=== PATIENT | female | born 1985 | race Caucasian/White ===

== ENCOUNTER 2018-07-29 19:50 | Inpatient (IN) | payer BC, OTHER ==
[2018-07-29] MEDS ORDERED: PROMETHAZINE HCL 25 MG/1 ML VIAL IVPB ONE (20:30)
[2018-07-29] MEDS ORDERED: DEXTROSE 5%-LACTATED RINGERS 1,000 ML IV SCH (20:30)
[2018-07-29] MEDS ORDERED: BUTORPHANOL TARTRATE 1 MG/ML VIAL IVPB ONE (20:30)
--- NOTE | 2018-07-29 20:30 | HP ---
Past Medical History - Primary Care Physician PCP:: Robles Saucedo - Admission Chief Complaint: 32yo P0 with at EGA 40w1d admitted in spontaneous latent labor. History of Present Illness: Normal Post term Pt was seen on L&D today in the morning in early labor and discharged to home. She was later seen in the office and also sent home. The pt returned to L&D tonight with c/o persistent painful contractions every 4-5 min. 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: Alzheimer's, CVA, Dementia, Migraine, Multiple Sclerosis, Peripheral Neuropathy, Parkinson's, Seizure, Syncope, TIA, Vertigo, Other Cardiovascular: No: AFIB, Aneurysm, Aortic Insufficiency, Aortic Stenosis, CAD, CHF, Deep Vein Thrombosis, HTN, Hyperlipdemia, CO, Mitral Insufficiency, Mitral Stenosis, Murmur, Pulmonary Hypertension, Other Pulmonary: No: Asthma, Bronchitis, Cancer, COPD, O2 Dependent, Pneumonia, Previously Intubated, Pulmonary Embolus, Pulmonary Fibrosis, Sleep Apnea, Other Gastrointestinal: No: Ascites, Cancer, Constipation, Crohn's Disease, Diverticulitis, Diverticulosis, Esophageal Varices, Gastritis, GERD, GI Bleed, Hemorrhoids, Hiatal Hernia, Inflamatory Bowel Disease, Irritable Bowel Disease, Pancreatitis, Peptic Ulcer Disease, Ulcerative Colitis, Other Hepatobiliary: No: Cirrhosis, Cholelithiasis, Cholecystitis, Choledocholithiasis , Hepatitis A, Hepatitis B, Hepatitis C, Other Renal/: No: Renal Failure, Renal Inusuff, BPH, Cancer, Hematuria, Hemodialysis , Neurogenic Bladder, Renal Calculi, UTI, Other Reproductive: No: Ectopic , Endometriosis, Fibroids, PID, Polycystic Ovary Syndrome, Postmenopausal, Other ...: 2 ...Para: 0 ...Term: 0 ...: 0 ...Spon : 0 ...Induced : 1 ... Weeks Gestation by Dates: 40.1 ...EDC by [facility]: 07/28/18 Heme/Onc: No: Anemia, B12 Deficiency, Bleeding Disorder, Cancer, Current Chemotherapy, Current Radiation Therapy, Hemochromatosis, Hypercoaguable State, Myeloproliferative Synd, Sickle Cell Disease, Sickle Cell Trait, Thrombocytopenia, Other Infectious Disease: No: AIDS, C-Diff, Herpes Zoster, HIV, MRSA, STD's, Tuberculosis, VREF, Other Psych: No: Addictions, Anxiety, Bipolar, Depression, Panic, Psychosis, Schizophrenia, Other Musculoskeletal: No: Bursitis, Chronic low back pain, Hemiparesis, Hemiplegia, Osteoarthritis, Paraplegia, Other Rheumatology: No: Fibromyalgia, Gout, Lupus, Rheumatoid Arthritis, Sarcoidosis, Vasculitis, Other Endocrine: No: Vigo's Disease, Ronald's Disease, Diabetes Insipidus, Diabetes Mellitus, Hyperparathyroidism, Hyperthyroidism, Hypothyroidism, Osteopenia, SIADH, Other Dermatology: No: Basal Cell, Cellulitis, Eczema, Melanoma, Psoriasis, Squamous Cell, Other - Past Surgical History Past Surgical History: Yes: None Hx Myomectomy: No Hx Transabdominal Cerclage: No Additional Surgical History: D&C - Smoking History Smoking history: Never smoked Have you smoked in the past 12 months: No - Alcohol/Substance Use History of Substance Use: reports: None - Social History Usual Living Arrangement: Yes: With Spouse ADL: Independent Occupation: [employer] teacher History of Recent Travel: No Home Medications - Allergies Allergies/Adverse Reactions: Allergies Allergy/AdvReac Type Severity Reaction Status Date / Time No Known Allergies Allergy Verified 07/29/18 09:42 - Home Medications Home Medications: Ambulatory Orders Pnv No.95/Ferrous Fum/Folic AC [ Formula] 1 each PO DAILY 07/29/18 Family Disease History - Family Disease History Family History: Denies Review of Systems - Review of Systems Constitutional: reports: Other (labor) Eyes: reports: No Symptoms HENT: reports: No Symptoms Neck: reports: No Symptoms Cardiovascular: reports: No Symptoms Respiratory: reports: No Symptoms Gastrointestinal: reports: No Symptoms Genitourinary: reports: No Symptoms Breasts: reports: No Symptoms Reported Musculoskeletal: reports: No Symptoms Integumentary: reports: No Symptoms Neurological: reports: No Symptoms Endocrine: reports: No Symptoms Hematology/Lymphatic: reports: No Symptoms Psychiatric: reports: No Symptoms Pain Intensity: 7 Physical Exam - Maternity Constitutional: Yes: Well Nourished, No Distress, Calm Eyes: Yes: WNL, Conjunctiva Clear HENT: Yes: WNL, Atraumatic, Normocephalic Neck: Yes: WNL, Supple, Trachea Midline Cardiovascular: Yes: WNL, Regular Rate and Rhythm Lungs: Clear to auscultation, Normal air movement - Abdominal Exam/OB Fundal Height: 40 Number of Fetuses: Single Presentation: Vertex Contractions: Yes Regularity: Irregular Intensity: Moderate Monitor Mode: External Heart Rate (range): 140 Heart Rate Location: Midline Category: I Accelerations: Non-Uniform Decelerations: None - Vaginal Exam/OB Vaginal Bleediing: No Speculum Exam: No Dilatation (cm): 2 Effacement (%): 80 Amniotic Membrane Status: Intact Presentation: Vertex/Position Station: -3 (Adequate gynecoid pelvimetry EFW ~ 7lb9oz by US and Chris maneuvers) - Physical Exam Musculoskeletal: Yes: WNL Extremities: Yes: WNL Edema: No Integumentary: Yes: WNL Deep Tendon Reflex Grade: Normal +2 ...Motor Strength: WNL Psychiatric: Yes: WNL, Alert, Oriented Hemorrhage Risk Assessment - Risk Factors Medium Risk Factors: Yes: None High Risk Factors: Yes: None Risk Score: 1 Risk Level: Medium Risk Imaging - Results Ultrasound: Report Reviewed Assessment/Plan 32yo P0 with at EGA 40w1d admitted in spontaneous latent labor. The pt is in early latent labor. The fetus with Category I tracing and does not require intervention. Plan to monitor labor. The pain mgt options were reviewed.
[2018-07-29] MEDS ORDERED: AMPICILLIN - 2 GM in SODIUM CHLORIDE 100 ML IVPB ONE (20:37)
[2018-07-29] MEDS ORDERED: AMPICILLIN - 1 GM in SODIUM CHLORIDE 100 ML IVPB SCH (20:45)
[2018-07-29 21:02] LABS: BASO % 0.5 % (0-2.0); EOS % 0.9 % (0-4.5); HEMATOCRIT 35.8 % (32.4-45.2); HEMOGLOBIN 12.3 GM/dL (10.7-15.3); LYMPH % 9.8 % (8-40); MCH 30.6 pg (25.7-33.7); MCHC 34.3 g/dl (32.0-36.0); MEAN PLT VOLUME 11.3 fl (7.5-11.1); MONO % 6.3 % (3.8-10.2); NEUT % 82.5 % (42.8-82.8); PLATELET COUNT 174 K/MM3 (134-434); RBC 4.03 M/mm3 (3.60-5.2); RDW 14.5 % (11.6-15.6); WHITE BLOOD COUNT 14.4 K/mm3 (4.0-10.0)
[2018-07-29] MEDS ORDERED: PROMETHAZINE HCL 25 MG/1 ML VIAL ONE (21:31)
[2018-07-29] MEDS ORDERED: BUTORPHANOL TARTRATE 1 MG/ML VIAL ONE ×2 (21:31)
[2018-07-29 21:34] LABS: INR 0.89 (0.83-1.09); PROTHROMBIN TIME (PATIENT) 10.5 SEC (9.7-13.0)
[2018-07-29 21:37] LABS: ACTIVATED PTT 28.3 SECONDS (25.2-36.5)
[2018-07-29] MEDS ORDERED: AMPICILLIN SODIUM 2 GM VIAL ONE (22:10)
[2018-07-29] MEDS ORDERED: SODIUM CHLORIDE 100 ML IVPB ONE (22:11)
[2018-07-29 22:17] LABS: ANION GAP 11 MMOL/L (8-16); BLOOD UREA NITROGEN 4 mg/dL (7-18); CALCIUM 8.7 mg/dL (8.5-10.1); CHLORIDE 108 mmol/L (98-107); CO2 21 mmol/L (21-32); CREATININE 0.8 mg/dL (0.55-1.3); GLUCOSE,RANDOM 99 mg/dL (74-106); SODIUM 139 mmol/L (136-145)
[2018-07-29 23:15] VITALS: BMI 28.1
[2018-07-30] MEDS ORDERED: AMPICILLIN SODIUM 1 GM VIAL ONE ×3 (02:04→14:33)
[2018-07-30] MEDS: AMPICILLIN - 1 GM in SODIUM CHLORIDE 100 ML IVPB SCH ×6 (02:13→22:48)
[2018-07-30] MEDS ORDERED: FENTANYL/BUPIVACAINE/NS/PF - PCEA - 50 ML DISP.SYRIN EP ONE ×3 (05:34→14:30)
[2018-07-30] MEDS ORDERED: LIDO 2%/EPI 1:200000 PRESRVFRE (20 ML SDVIAL) ONE (05:39)
[2018-07-30] MEDS ORDERED: BUPIVACAINE HCL/PF 0.25% (2.5MG/ML) 10 ML VIAL ONE ×2 (05:39→15:25)
[2018-07-30] MEDS ORDERED: NALOXONE HCL 0.4 MG/ML VIAL IVPUSH PRN (06:12)
[2018-07-30] MEDS ORDERED: FENTANYL/BUPIVACAINE/NS/PF - PCEA - 50 ML DISP.SYRIN EP SCH ×2 (06:15→07:10)
--- NOTE | 2018-07-30 08:26 | PN ---
Ante-Partal Exam - Subjective Subjective: No complaints. Pt has epidural in place. Spontaneous labor. Vital Signs: Vital Signs Temperature 98.5 F 07/30/18 05:00 Pulse Rate 66 07/30/18 07:00 Respiratory Rate 20 07/30/18 07:00 Blood Pressure 107/73 07/30/18 07:00 O2 Sat by Pulse Oximetry (%) 98 07/30/18 07:00 Bleeding: No Headache: No Visual changes: No Right upper quadrant pain: No Pain (scale 1-10): 0 - Contractions Contractions: Yes Regularity: Regular Intensity: Unaware Monitor Mode: External - Exam during Labor Heart Rate: 140 Variability: Moderate Heart Rate Location: Midline Category: I Monitor Accelerations: Present Monitor Decelerations: None Exam: Vaginal Dilatation (cm): 3 Effacement (%): 90 Amniotic Membrane Status: Intact Presentation: Vertex Station: -2 (Adequate gynecoid pelvimetry) - Intrapartum Hemorrhage Risk Medium Risk Factors: None High Risk Factors: None Risk Score: 0 Risk Level: Low Risk - Assessment/Plan Assessment/Plan: Pt is progressing in latent labor. Fetus with Category I tracing and does not require intervention. Plan to monitor labor.
[2018-07-30] MEDS ORDERED: ELECTROLYTE-148 SOLN 1,000 ML IV SCH (13:00)
--- NOTE | 2018-07-30 13:07 | PN ---
Ante-Partal Exam - Subjective Subjective: Patient comfortable s/p epidural Vital Signs: Vital Signs Temperature 98.3 F 07/30/18 10:00 Pulse Rate 69 07/30/18 11:30 Respiratory Rate 18 07/30/18 11:30 Blood Pressure 116/82 07/30/18 11:30 O2 Sat by Pulse Oximetry (%) 100 07/30/18 11:30 Bleeding: No Headache: No Visual changes: No Right upper quadrant pain: No - Contractions Contractions: Yes Regularity: Regular Intensity: Unaware Monitor Mode: External - Exam during Labor Heart Rate: 130 Variability: Moderate Category: I Monitor Accelerations: Present Monitor Decelerations: Variable Exam: Vaginal Dilatation (cm): 5 Effacement (%): 100 Amniotic Membrane Status: Ruptured Presentation: Vertex Station: -1 - Intrapartum Hemorrhage Risk Medium Risk Factors: None High Risk Factors: None Risk Score: 0 Risk Level: Low Risk - Assessment/Plan Assessment/Plan: 32 yo active labor 1. Good cervical changed 2. GBS positive 3. Category I FHT 4. Pain well controlled with epidural 5. Will proceed with expectant management
--- NOTE | 2018-07-30 16:16 | PN ---
Ante-Partal Exam - Subjective Subjective: Pt w/o complaints Vital Signs: Vital Signs Temperature 98.3 F 07/30/18 14:00 Pulse Rate 76 07/30/18 16:00 Respiratory Rate 18 07/30/18 16:00 Blood Pressure 119/83 07/30/18 16:00 O2 Sat by Pulse Oximetry (%) 100 07/30/18 16:00 Bleeding: No Headache: No Visual changes: No Right upper quadrant pain: No Pain (scale 1-10): 0 - Contractions Contractions: Yes Regularity: Regular Intensity: Unaware Monitor Mode: External - Exam during Labor Heart Rate: 135 Variability: Moderate Heart Rate Location: Midline Category: I Monitor Accelerations: Present Monitor Decelerations: Variable (occasional) Exam: Vaginal Dilatation (cm): 9 Effacement (%): 100 Amniotic Membrane Status: Leaking Amniotic Fluid: Clear Meconium Staining: Light Presentation: Vertex Station: +1 - Intrapartum Hemorrhage Risk Medium Risk Factors: None High Risk Factors: None Risk Score: 0 Risk Level: Low Risk - Assessment/Plan Assessment/Plan: 32yo P0 with at EGA 40 wks in spontaneous labor. The pt is progressing in active labor. Fetus with category I tracing and does not require intervention. Plan to monitor labor and anticipate .
[2018-07-30] MEDS ORDERED: LIDOCAINE HCL 1% PRESERVATIVE FREE - 30ML VIAL ONE (16:47)
[2018-07-30] MEDS ORDERED: OXYTOCIN 20 UNITS in 0.9% NS 20 UNIT/1,000 ML INFUS.BAG IV ONE (16:47)
--- NOTE | 2018-07-30 17:01 | PN ---
Ante-Partal Exam - Subjective Subjective: Spontaneous decel noted. Pt is fully dilated on exam Vital Signs: Vital Signs Temperature 98.3 F 07/30/18 14:00 Pulse Rate 76 07/30/18 16:00 Respiratory Rate 18 07/30/18 16:00 Blood Pressure 119/83 07/30/18 16:00 O2 Sat by Pulse Oximetry (%) 100 07/30/18 16:00 Bleeding: No Headache: No Visual changes: No Right upper quadrant pain: No Pain (scale 1-10): 0 - Contractions Contractions: Yes Regularity: Regular Intensity: Unaware Monitor Mode: External - Exam during Labor Variability: Absent (140) Heart Rate Location: Midline Category: I Monitor Accelerations: Present Monitor Decelerations: Prolonged (x 1) Exam: Vaginal Dilatation (cm): 10 Effacement (%): 100 Amniotic Membrane Status: Leaking Presentation: Vertex Station: +1 - Intrapartum Hemorrhage Risk Medium Risk Factors: None High Risk Factors: None Risk Score: 0 Risk Level: Low Risk - Assessment/Plan Assessment/Plan: 32yo P0 progressed to second stage and will stat pushing when feels contractions. Prolonged decel resolved.
--- NOTE | 2018-07-30 19:04 | PN ---
Delivery - Delivery Vaginal Delivery: No Problems Type of Anesthesia: Epidural Episiotomy/Laceration: Vaginal Extension/lac, 2nd degree EBL (cc): 300 Delivery, Single - Stages of Labor Date 1st Stage Initiatied: 07/29/18 Time 1st Stage Initiated: 21:00 Date 2nd Stage Initiated: 07/30/18 Time 2nd Stage Initiated: 17:00 Date of Delivery: 07/30/18 Time of Delivery: 18:30 Date Placenta Delivered: 07/30/18 Time Placenta Delivered: 18:45 Placenta: Yes: Spontaneous - Condition of Infant Infant Gender: Female Position: OA Total Hours ROM (Hrs/Mins): 5 hours 45 minutes - 1 Minute Total Score: 8 5 Minutes Total Score: 9 - [place] Feeding Plan Initial Plan: Exclusive throughout hospitalization Remarks - Remarks Remarks: Patient progressed to fully dilated and at 1830 via delivered a viable female in direct OA position, APGARs 8,9. Weight and length unknown at this time. Head delivered spontaneously, nuchal cord noted and delivered through. followed by shoulders and body without difficulty. Body cord noted. with spontaneous cry and placed on mother's abdomen. Nose and mouth was bulb suctioned. Cord was clamped and cut. Perineum and vagina examined, a second degree left vaginal laceration was noted and repaired in the usual fashion. Rectal exam revealed no sutures in rectum. Placenta was delivered spontaneously and intact. 20 units of pitocin in 1 L IVF was given. All counts correct x 2. Mother and infant stable in LDR. EBL 300cc.
[2018-07-30] MEDS ORDERED: BISACODYL 10 MG SUPP.RECT RC PRN (19:07)
[2018-07-30] MEDS ORDERED: BENZOCAINE 20% 57 GM BOTTLE TP PRN (19:07)
[2018-07-30] MEDS ORDERED: WITCH HAZEL 50% (TUCKS) 40 PAD/JAR PAD TP PRN (19:07)
[2018-07-30] MEDS ORDERED: METHYLERGONOVINE MALEATE 0.2 MG/1 ML AMP IM PRN (19:07)
[2018-07-30] MEDS ORDERED: BENZOCAINE 28 GM HEMORRHOIDAL OINTMENT TP PRN (19:07)
[2018-07-30 19:08] LABS: ARTERIAL BLOOD GAS BASE EXCESS -6.1 meq/l (-2-2); ARTERIAL BLOOD GAS PCO2 47.5 mmHg (35-45); ARTERIAL BLOOD GAS pH 7.26 (7.35-7.45)
[2018-07-30 19:15] LABS: ARTERIAL BLOOD GAS PO2 22.9 mmHg (80-100)
[2018-07-30] MEDS ORDERED: OXYTOCIN 20 UNITS in 0.9% NS 20 UNIT/1,000 ML INFUS.BAG IV SCH (19:15)
[2018-07-30 19:17] LABS: VENOUS PC02 35.3 mmHg (38-52); VENOUS PH 7.33 (7.32-7.42); VENOUS PO2 33.7 mmHg (28-48)
[2018-07-31] MEDS: ACETAMINOPHEN 325 MG TABLET (FP) PO PRN ×4 (01:55→22:14)
[2018-07-31] MEDS: IBUPROFEN 600 MG TABLET (FP) PO PRN ×4 (01:57→22:15)
[2018-07-31 08:18] LABS: BASO % 0.4 % (0-2.0); EOS % 1.3 % (0-4.5); HEMATOCRIT 32.5 % (32.4-45.2); LYMPH % 10.8 % (8-40); MCH 30.3 pg (25.7-33.7); MCHC 33.7 g/dl (32.0-36.0); MEAN CELL VOLUME 89.9 fl (80-96); MEAN PLT VOLUME 11.1 fl (7.5-11.1); MONO % 7.4 % (3.8-10.2); NEUT % 80.1 % (42.8-82.8); PLATELET COUNT 158 K/MM3 (134-434); RBC 3.61 M/mm3 (3.60-5.2); RDW 14.7 % (11.6-15.6); WHITE BLOOD COUNT 17.1 K/mm3 (4.0-10.0)
--- NOTE | 2018-07-31 08:39 | PN ---
Post Progress Note - Subjective Subjective: Patient without acute complaints. Reports tolerating oral intake without nausea or vomiting. Ambulating without dizziness. Denies fevers or chills. Pain well controlled with oral pain medication. without difficulty. Passing flatus. Post Day: 1 Type of Delivery: Vital Signs: Vital Signs Temperature 98 F 07/31/18 06:00 Pulse Rate 74 07/31/18 06:00 Respiratory Rate 18 07/31/18 06:00 Blood Pressure 118/70 07/31/18 06:00 O2 Sat by Pulse Oximetry (%) 99 07/30/18 22:00 Breast Exam: Yes: Soft Uterus: Yes: Fundus Firm, Fundus below umbilicus Abdomen/GI: Yes: Abdomen soft, Passing flatus, Tolerating PO. No: Abdominal Distention, Tender Lochia: Yes: Serosa Lochia, amount: Small Extremities: Yes: Calves non-tender, Edema (trace) Perineum: Yes: Intact Activity: Ambulating - Labs Labs: CBC WBC 14.4 K/mm3 (4.0-10.0) H 07/29/18 20:30 RBC 4.03 M/mm3 (3.60-5.2) 07/29/18 20:30 Hgb 12.3 GM/dL (10.7-15.3) 07/29/18 20:30 Hct 35.8 % (32.4-45.2) 07/29/18 20:30 MCV 89.0 fl (80-96) 07/29/18 20:30 MCH 30.6 pg (25.7-33.7) 07/29/18 20:30 MCHC 34.3 g/dl (32.0-36.0) 07/29/18 20:30 RDW 14.5 % (11.6-15.6) 07/29/18 20:30 Plt Count 174 K/MM3 (134-434) 07/29/18 20:30 MPV 11.3 fl (7.5-11.1) H 07/29/18 20:30 Absolute Neuts (auto) 11.9 K/mm3 (1.5-8.0) H 07/29/18 20:30 Neutrophils % 82.5 % (42.8-82.8) 07/29/18 20:30 Lymphocytes % 9.8 % (8-40) 07/29/18 20:30 Monocytes % 6.3 % (3.8-10.2) 07/29/18 20:30 Eosinophils % 0.9 % (0-4.5) 07/29/18 20:30 Basophils % 0.5 % (0-2.0) 07/29/18 20:30 Nucleated RBC % 0 % (0-0) 07/29/18 20:30 Assessment/Plan 32 yo PPD #1 s/p , afebrile, vital signs stable, doing well 1. Continue routine care. 2. AM CBC without anemia 3. Rh positive status, no rhogam indicated. 4. Encourage ambulation 5. Continue oral pain medication 6. Anticipate discharge home day #2
[2018-07-31] MEDS: PRENATAL VITAMINS W/ FOLIC ACID TABLET (FP) PO SCH (09:21)
[2018-07-31] MEDS ORDERED: FLU VACCINE QUAD 60 MCG/0.5 ML (MDV 18-19) IM ONE (10:00)
--- NOTE | 2018-07-31 12:04 | DS ---
Physical Exam-FREIGHT MANAGER Vital Signs: Vital Signs Temperature 98 F 07/31/18 09:52 Pulse Rate 69 07/31/18 09:52 Respiratory Rate 18 07/31/18 09:52 Blood Pressure 105/70 07/31/18 09:52 O2 Sat by Pulse Oximetry (%) 99 07/30/18 22:00 Labs: CBC, BMP 07/31/18 07:30 07/29/18 20:30 Delivery - Delivery Vaginal Delivery: No Problems Type of Anesthesia: Epidural Episiotomy/Laceration: Vaginal Extension/lac, 2nd degree EBL (cc): 300 Delivery, Single - Stages of Labor Date 1st Stage Initiatied: 07/29/18 Time 1st Stage Initiated: 21:00 Date 2nd Stage Initiated: 07/30/18 Time 2nd Stage Initiated: 17:00 Date of Delivery: 07/30/18 Time of Delivery: 18:30 Time Placenta Delivered: 18:45 Placenta: Yes: Spontaneous - 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 She progressed to deliver via a viable female infant. PPD # 1 patient ambulated, voiding, passing gas, tolerating oral intake and with adequate pain control. She fulfilled all criteria for discharge PPD #2 Condition: Good - Instructions Diet, Activity, Other Instructions: Physical activity Resume your normal everyday activity as tolerated no heavy lifting or exercise until seen by your surgeon. You may walk unlimited rai of and climb stairs. You may resume driving the car when you feel safe and comfortable behind the wheel. No sexual activity as instructed. Diet There are no dietary restrictions. Eat healthy, high-fiber foods. Drink 6 to 8 glasses of liquid each day. This will assist in keeping your bowels are regular. Pain management You may take Tylenol or acetaminophen or Ibuprofen (for example, Motrin, Advil etc.) from my pain prescription medication is ordered should be taken as prescribed for moderate to severe pain. Call MD for any of the following: Severe pain not relieved by medication Fever of 101 or higher Excessive bleeding or drainage on dressing Inability to urinate Referrals: Isabella Villalba MD [Staff Physician] - Disposition: HOME - Home Medications Comprehensive Discharge Medication List: Ambulatory Orders Pnv No.95/Ferrous Fum/Folic AC [ Formula] 1 each PO DAILY 07/29/18
[2018-07-31] MEDS ORDERED: SENNOSIDES/DOCUSATE COMBO (SENNA PLUS) TABLET (UD) PO PRN (22:00)
--- NOTE | 2018-08-01 07:11 | PN ---
Progress Note (short form) - Note Progress Note: ppd 2 doing well, no c/o , no excess vaginal bleeding CBC, BMP 07/31/18 07:30 07/29/18 20:30 Last Vital Signs Temp Pulse Resp BP Pulse Ox 98.6 F 67 18 116/76 99 07/31/18 22:00 07/31/18 22:00 07/31/18 22:00 07/31/18 22:00 07/30/18 22:00 uterus firm, non tender, no cva lochia mild no calf tenderness plan d/c home, follow up office 4 weeks
[2018-08-01] MEDS: ACETAMINOPHEN 325 MG TABLET (FP) PO PRN (07:34)
[2018-08-01] MEDS: IBUPROFEN 600 MG TABLET (FP) PO PRN (07:34)
[2018-08-01 09:23] VITALS: BP 125/77; PULSE 69; TEMP 98
[2018-08-01] MEDS: PRENATAL VITAMINS W/ FOLIC ACID TABLET (FP) PO SCH (09:25)
== END 2018-08-01 13:37 | disposition home or self-care (01) | DRG 807 ==
LOC: JDEL 19:50 → JLDR 19:51 → JDEL 20:10 → JLDR 07-30 10:01 → J3W 07-30 20:48
PROVIDERS: ADMIT Obstetrics & Gynecology; ATTEND Obstetrics & Gynecology
PROC: 0KQM0ZZ Repair Perineum Muscle, Open Approach (ICD-10-PCS; principal; 2018-07-30)
PROC: 10E0XZZ Delivery of Products of Conception, External Approach (ICD-10-PCS; 2018-07-30)
DX: O48.0 Post-term pregnancy (principal); Z37.0 Single live birth; O70.1 Second degree perineal laceration during delivery; Z3A.40 40 weeks gestation of pregnancy
CPT/HCPCS: 36415; 36600; 59409; 80048; 82803; 85025; 85610; 85730; 86593; 86850; 86900; 86901; 87389; 90688; G0008

== ENCOUNTER 2020-10-27 23:00 | Inpatient (IN) | payer BC, OTHER ==
[2020-10-28] MEDS ORDERED: DEXTROSE 5%-LACTATED RINGERS 1,000 ML IV SCH (01:20)
[2020-10-28 02:01] LABS: BASO % 0.6 % (0-2.0); EOS % 1.4 % (0-4.5); HEMATOCRIT 30.4 % (32.4-45.2); HEMOGLOBIN 10.1 GM/dL (10.7-15.3); LYMPH % 19.9 % (8-40); MCH 27.7 pg (25.7-33.7); MCHC 33.1 g/dl (32.0-36.0); MEAN CELL VOLUME 83.7 fl (80-96); MEAN PLT VOLUME 10.4 fl (7.5-11.1); MONO % 6.9 % (3.8-10.2); NEUT % 71.2 % (42.8-82.8); PLATELET COUNT 196 K/MM3 (134-434); RBC 3.63 M/mm3 (3.60-5.2); RDW 14.1 % (11.6-15.6); WHITE BLOOD COUNT 10.8 K/mm3 (4.0-10.0)
[2020-10-28 02:11] LABS: INR 0.88 (0.83-1.09); PROTHROMBIN TIME (PATIENT) 10.9 SEC (9.7-13.0)
[2020-10-28 02:13] LABS: ACTIVATED PTT 26.6 SECONDS (25.2-36.5)
[2020-10-28 02:18] VITALS: BMI 28.1
[2020-10-28] MEDS ORDERED: BUTORPHANOL TARTRATE 2 MG/ML VIAL IVPB ONE (02:40)
[2020-10-28] MEDS ORDERED: AMPICILLIN SODIUM 2 GM VIAL ONE (02:40)
[2020-10-28] MEDS ORDERED: PROMETHAZINE HCL 25 MG/1 ML VIAL IVPB ONE (02:40)
[2020-10-28] MEDS ORDERED: AMPICILLIN SODIUM 1 GM VIAL ONE ×2 (02:41→10:53)
[2020-10-28 02:44] LABS: BLOOD UREA NITROGEN 6.5 mg/dL (7-18); CALCIUM 8.7 mg/dL (8.5-10.1); CREATININE 0.6 mg/dL (0.55-1.3)
[2020-10-28] MEDS ORDERED: BUTORPHANOL TARTRATE 2 MG/ML VIAL ONE (02:56)
[2020-10-28] MEDS ORDERED: PROMETHAZINE HCL 25 MG/1 ML VIAL ONE (02:56)
[2020-10-28] MEDS ORDERED: AMPICILLIN SODIUM 2 GM VIAL IVPB ONE (03:00)
[2020-10-28 03:21] LABS: HIV INTERPRETATION NEGATIVE (NEGATIVE)
[2020-10-28] MEDS: AMPICILLIN SODIUM 1 GM VIAL IVPB SCH ×3 (06:54→19:14)
[2020-10-28] MEDS ORDERED: FENTANYL/BUPIVACAINE/NS/PF - PCEA - 50 ML DISP.SYRIN EP ONE ×2 (07:47→12:00)
[2020-10-28] MEDS ORDERED: PCA PUMP NR ONE (07:47)
[2020-10-28] MEDS ORDERED: NALOXONE HCL 0.4 MG/ML VIAL IVPUSH PRN (07:48)
[2020-10-28] MEDS ORDERED: BUPIVACAINE HCL/PF 0.25% (2.5MG/ML) 10 ML VIAL ONE ×3 (07:56→08:03)
[2020-10-28] MEDS ORDERED: FENTANYL/BUPIVACAINE/NS/PF - PCEA - 50 ML DISP.SYRIN EP SCH (08:00)
[2020-10-28] MEDS ORDERED: OXYTOCIN 30 UNITS in 0.9% NS 30 UNIT/500 ML INFUS.BAG IVPB SCH (08:15)
[2020-10-28] MEDS ORDERED: ELECTROLYTE-148 SOLN 1,000 ML IV SCH (08:15)
[2020-10-28] MEDS ORDERED: OXYTOCIN 30 UNITS in 0.9% NS 30 UNIT/500 ML INFUS.BAG IVPB ONE (08:27)
[2020-10-28] MEDS ORDERED: OXYTOCIN 20 UNITS in 0.9% NS 20 UNIT/1,000 ML INFUS.BAG IV ONE ×2 (12:09→15:45)
[2020-10-28 13:39] LABS: CORD BASE EXCESS -7.6 mmol/L (0-2); CORD HCO3 17.1 mmHg (20-29); CORD PCO2 32.5 mmHg (30-78); CORD pH 7.338 (7.14-7.44)
[2020-10-28 13:40] LABS: CORD BASE EXCESS -5.2 mmol/L (0-2); CORD HCO3 21.7 mmHg (20-29); CORD pH 7.273 (7.14-7.44)
[2020-10-28] MEDS ORDERED: BENZOCAINE 28 GM HEMORRHOIDAL OINTMENT TP PRN (15:11)
[2020-10-28] MEDS ORDERED: METHYLERGONOVINE MALEATE 0.2 MG/1 ML AMP IM PRN (15:11)
[2020-10-28] MEDS ORDERED: BENZOCAINE 20% 57 GM BOTTLE TP PRN (15:11)
[2020-10-28] MEDS ORDERED: WITCH HAZEL 50% (TUCKS) 40 PAD/JAR PAD TP PRN (15:11)
[2020-10-28] MEDS ORDERED: BISACODYL 10 MG SUPP.RECT RC PRN (15:11)
[2020-10-28] MEDS ORDERED: OXYTOCIN 20 UNITS in 0.9% NS 20 UNIT/1,000 ML INFUS.BAG IV SCH (15:15)
[2020-10-29] MEDS: AMPICILLIN SODIUM 1 GM VIAL IVPB SCH ×2 (03:43→03:45)
[2020-10-29 07:41] LABS: BASO % 1.7 % (0-2.0); EOS % 1.2 % (0-4.5); HEMATOCRIT 26.6 % (32.4-45.2); HEMOGLOBIN 8.7 GM/dL (10.7-15.3); LYMPH % 16.9 % (8-40); MCH 27.6 pg (25.7-33.7); MCHC 32.7 g/dl (32.0-36.0); MEAN CELL VOLUME 84.6 fl (80-96); MEAN PLT VOLUME 10.3 fl (7.5-11.1); MONO % 6.6 % (3.8-10.2); NEUT % 73.6 % (42.8-82.8); PLATELET COUNT 165 K/MM3 (134-434); RBC 3.15 M/mm3 (3.60-5.2); RDW 14.5 % (11.6-15.6); WHITE BLOOD COUNT 11.8 K/mm3 (4.0-10.0)
[2020-10-29] MEDS: PRENATAL VITAMINS W/ FOLIC ACID TABLET (FP) PO SCH (10:11)
[2020-10-29] MEDS: IBUPROFEN 600 MG TABLET (FP) PO PRN (17:53)
[2020-10-29] MEDS: ACETAMINOPHEN 325 MG TABLET (FP) PO PRN (17:54)
[2020-10-29] MEDS ORDERED: SENNOSIDES/DOCUSATE COMBO (SENNA PLUS) TABLET (UD) PO PRN (22:00)
[2020-10-30] MEDS: IBUPROFEN 600 MG TABLET (FP) PO PRN (08:22)
[2020-10-30] MEDS: ACETAMINOPHEN 325 MG TABLET (FP) PO PRN (08:24)
[2020-10-30] MEDS: PRENATAL VITAMINS W/ FOLIC ACID TABLET (FP) PO SCH (11:11)
[2020-10-30 12:49] VITALS: BP 113/77; PULSE 68; TEMP 97.8
== END 2020-10-30 15:00 | disposition home or self-care (01) | DRG 807 ==
LOC: JDEL 23:00 → JLDR 10-28 00:10 → J3W 10-28 15:34
PROVIDERS: ADMIT Obstetrics & Gynecology; ATTEND Obstetrics & Gynecology
PROC: 10E0XZZ Delivery of Products of Conception, External Approach (ICD-10-PCS; principal; 2020-10-28)
PROC: 0W8NXZZ Division of Female Perineum, External Approach (ICD-10-PCS; 2020-10-28)
DX: O99.824 Streptococcus B carrier state complicating childbirth (principal); Z37.0 Single live birth; O70.0 First degree perineal laceration during delivery; Z3A.39 39 weeks gestation of pregnancy
CPT/HCPCS: 36415; 36600; 59409; 80048; 82803; 85025; 85610; 85730; 86780; 86850; 86900; 86901; 87389; C9803; U0003; U0005

== ENCOUNTER 2023-11-03 07:55 | Inpatient (IN) | payer BC, OTHER ==
[2023-11-03 08:56] VITALS: BMI 28.1
[2023-11-03] MEDS ORDERED: AMPICILLIN SODIUM 2 GM VIAL ONE (08:57)
[2023-11-03] MEDS ORDERED: SODIUM CHLORIDE 100 ML IVPB ONE (08:57)
[2023-11-03] MEDS: ELECTROLYTE-148 SOLN 1,000 ML IV SCH (09:00)
[2023-11-03] MEDS: AMPICILLIN - 2 GM in SODIUM CHLORIDE 100 ML IVPB ONE (09:15)
[2023-11-03 09:25] LABS: BASO % 0.6 % (0-2.0); EOS % 0.4 % (0-4.5); HEMOGLOBIN 12.3 GM/dL (10.7-15.3); LYMPH % 10.6 % (8-40); MCH 29.3 pg (25.7-33.7); MEAN CELL VOLUME 86.2 fl (80-96); MEAN PLT VOLUME 9.8 fl (7.5-11.1); MONO % 5.1 % (3.8-10.2); NEUT % 83.3 % (42.8-82.8); PLATELET COUNT 165 10^3/uL (134-434); RBC 4.18 M/mm3 (3.60-5.2); RDW 18.9 % (11.6-15.6); WHITE BLOOD COUNT 12.4 K/mm3 (4.0-10.0)
[2023-11-03 09:32] LABS: INR 0.85 (0.83-1.09); PROTHROMBIN TIME (PATIENT) 9.7 SEC (9.7-13.0)
[2023-11-03 09:35] LABS: ACTIVATED PTT 30.2 SECONDS (25.2-36.5)
[2023-11-03 09:47] LABS: POTASSIUM 3.6 mmol/L (3.5-5.1)
[2023-11-03 09:48] LABS: CALCIUM 8.6 mg/dL (8.5-10.1)
[2023-11-03 09:49] LABS: BLOOD UREA NITROGEN 8.1 mg/dL (7-18)
[2023-11-03 09:52] LABS: CREATININE 0.6 mg/dL (0.55-1.3)
[2023-11-03] MEDS ORDERED: FENTANYL/BUPIVACAINE/NS/PF - PCEA - 50 ML DISP.SYRIN EP ONE (10:13)
[2023-11-03] MEDS ORDERED: NALOXONE HCL 0.4 MG/ML VIAL IVPUSH PRN (10:22)
[2023-11-03] MEDS: FENTANYL/BUPIVACAINE/NS/PF - PCEA - 50 ML DISP.SYRIN EP SCH (10:27)
[2023-11-03] MEDS ORDERED: OXYTOCIN 20 UNITS in 0.9% NS 20 UNIT/1,000 ML INFUS.BAG IV ONE (10:44)
[2023-11-03] MEDS ORDERED: OXYTOCIN 30 UNITS in 0.9% NS 30 UNIT/500 ML INFUS.BAG IVPB ONE (10:44)
[2023-11-03 10:45] LABS: SYPHILIS W/ RPR CONF NON-REACTIVE (NONREACTIVE)
[2023-11-03 11:14] LABS: HIV INTERPRETATION NEGATIVE (NEGATIVE)
[2023-11-03] MEDS ORDERED: METHYLERGONOVINE MALEATE 0.2 MG/1 ML AMP IM PRN (12:26)
[2023-11-03] MEDS ORDERED: BISACODYL 10 MG SUPP.RECT RC PRN (12:26)
[2023-11-03] MEDS ORDERED: oxyCODONE HCL 5 MG TABLET PO PRN (12:26)
[2023-11-03] MEDS ORDERED: WITCH HAZEL 50% (TUCKS) 40 PAD/JAR PAD TP PRN (12:26)
[2023-11-03] MEDS ORDERED: BENZOCAINE 20% 57 GM BOTTLE TP PRN (12:26)
[2023-11-03] MEDS ORDERED: ACETAMINOPHEN 325 MG TABLET (FP) PO PRN (12:26)
[2023-11-03] MEDS ORDERED: BENZOCAINE 28 GM HEMORRHOIDAL OINTMENT TP PRN (12:26)
[2023-11-03] MEDS: OXYTOCIN 20 UNITS in 0.9% NS 20 UNIT/1,000 ML INFUS.BAG IV SCH (13:00)
[2023-11-03 13:03] LABS: CORD BASE EXCESS -6.8 mmol/L (0-2); CORD BASE EXCESS -7.4 mmol/L (0-2); CORD HCO3 18.5 mmHg (20-29); CORD PCO2 34.4 mmHg (30-78); CORD PCO2 39.1 mmHg (30-78); CORD pH 7.294 (7.14-7.44); CORD pH 7.337 (7.14-7.44)
[2023-11-03] MEDS ORDERED: AMPICILLIN - 1 GM in SODIUM CHLORIDE 100 ML IVPB SCH (13:15)
[2023-11-03 15:15] VITALS: RESP 18
[2023-11-03] MEDS: FERROUS SO4 325 MG TABLET (FP) PO SCH (17:48)
[2023-11-03] MEDS: IBUPROFEN 600 MG TABLET (FP) PO PRN (21:30)
[2023-11-04 08:32] LABS: BASO % 0.4 % (0-2.0); EOS % 0.7 % (0-4.5); HEMATOCRIT 31.7 % (32.4-45.2); HEMOGLOBIN 10.8 GM/dL (10.7-15.3); LYMPH % 12.9 % (8-40); MCH 29.5 pg (25.7-33.7); MCHC 34.1 g/dl (32.0-36.0); MEAN CELL VOLUME 86.5 fl (80-96); MEAN PLT VOLUME 9.7 fl (7.5-11.1); MONO % 5.8 % (3.8-10.2); NEUT % 80.2 % (42.8-82.8); PLATELET COUNT 169 10^3/uL (134-434); RBC 3.66 M/mm3 (3.60-5.2); RDW 19.5 % (11.6-15.6); WHITE BLOOD COUNT 11.8 K/mm3 (4.0-10.0)
[2023-11-04] MEDS: PRENATAL VITAMINS W/ FOLIC ACID TABLET (FP) PO SCH (09:48)
[2023-11-04 21:21] LABS: HEMATOCRIT 31.9 % (32.4-45.2); HEMOGLOBIN 10.7 GM/dL (10.7-15.3); MCH 29.5 pg (25.7-33.7); MCHC 33.7 g/dl (32.0-36.0); MEAN CELL VOLUME 87.5 fl (80-96); MEAN PLT VOLUME 9.5 fl (7.5-11.1); PLATELET COUNT 174 10^3/uL (134-434); RBC 3.64 M/mm3 (3.60-5.2); RDW 19.6 % (11.6-15.6); WHITE BLOOD COUNT 11.7 K/mm3 (4.0-10.0)
[2023-11-04] MEDS: SENNOSIDES/DOCUSATE COMBO (SENNA PLUS) TABLET (UD) PO PRN (21:27)
[2023-11-05 09:40] VITALS: BP 110/69; PULSE 75; TEMP 98.1
== END 2023-11-05 11:55 | disposition home or self-care (01) | DRG 807 ==
LOC: JDEL 07:55 → JLDR 08:15 → J3W 14:45
PROVIDERS: ADMIT Obstetrics & Gynecology; ATTEND Obstetrics & Gynecology
PROC: 10E0XZZ Delivery of Products of Conception, External Approach (ICD-10-PCS; principal; 2023-11-03)
PROC: 0KQM0ZZ Repair Perineum Muscle, Open Approach (ICD-10-PCS; 2023-11-03)
PROC: 0W8NXZZ Division of Female Perineum, External Approach (ICD-10-PCS; 2023-11-03)
DX: O48.0 Post-term pregnancy (principal); Z37.0 Single live birth; O70.1 Second degree perineal laceration during delivery; O99.824 Streptococcus B carrier state complicating childbirth; Z3A.40 40 weeks gestation of pregnancy
CPT/HCPCS: 36415; 36600; 80048; 82803; 85025; 85027; 85610; 85730; 86780; 86850; 86900; 86901; 87389